=== PATIENT | female | born 2000 | race Caucasian/White ===

== ENCOUNTER 2019-06-08 15:30 | Outpatient (CLI) | payer BC ==
--- NOTE | 2019-06-08 17:03 | MRI ---
MRI OF THE BRAIN WITHOUT AND WITH CONTRAST: 06/08/19 HISTORY: History of migraine headaches. TECHNIQUE: Multiplanar and multisequence MR images were obtained in the brain without and with IV contrast. FINDINGS: The brain demonstrates normal signal intensity on all obtained sequences. No restricted diffusion or abnormal enhancement are seen on this examination. There is no evidence of hydrocephalus, intracrani al hemorrhage or extra-axial fluid collection. The expected flow voids are present. The corpus callosum, pituitary, and craniocervical junction are unremarkable. The calvarium and overlying soft tissues are unremarkable. The visualized paranasal sinuses and masto id air cells are well aerated. IMPRESSION: Normal MRI of the brain. POS: C
== END 2019-06-08 15:31 | disposition home or self-care (01) ==
LOC: SCSMRI 15:30
PROVIDERS: ATTEND Nurse Practitioner Acute Care
DX: R51 Headache (principal)
CPT/HCPCS: 70553